=== PATIENT | female | born 1990 | race African-American/Black ===

== ENCOUNTER 2018-05-15 15:24 | Emergency (ER) | payer OTHER ==
[2018-05-15 15:32] VITALS: BP 107/53; PULSE 85; TEMP 98.4; BMI 29.7
--- NOTE | 2018-05-15 15:58 | PDOC ---
History of Present Illness - General Chief Complaint: Vaginal Sxs Stated Complaint: VAGINAL PAIN Time Seen by Provider: 05/15/18 15:33 History Source: Patient Exam Limitations: No Limitations - History of Present Illness Abdominal Pain Onset Location: reports: suprapubic (27y/o F with suprapubic abd pain with UTI sx X 3 days) Past History - Travel Close contact w/someone who was outside of country & ill: No - Past Medical History Allergies/Adverse Reactions: Allergies Allergy/AdvReac Type Severity Reaction Status Date / Time No Known Allergies Allergy Verified 05/15/18 15:28 Home Medications: Ambulatory Orders Fluconazole 150 mg PO ONCE 2 Days #2 tablet 05/15/18 Sulfamethoxazole/Trimethoprim [Bactrim Ds -] 1 tab PO BID 3 Days #6 tablet 05/15 metroNIDAZOLE 0.75% VAG. GEL [Metrogel 0.75% *Vaginal Gel* -] 1 applic VG HS 7 Days #1 tube 05/15/18 metroNIDAZOLE [Flagyl -] 500 mg PO BID 7 Days #14 tablet 05/15/18 COPD: No DVT: No - Surgical History Gastric Stapling: No Neurologic Surgery: No - Immunization History Immunization Up to Date: No - Suicide/Smoking/Psychosocial Hx Smoking History: Never smoked Have you smoked in the past 12 months: No Information on smoking cessation initiated: No Hx Alcohol Use: No Drug/Substance Use Hx: No Review of Systems - Review of Systems Able to Perform ROS?: No Is the patient limited Arabic proficient: No Constitutional: No: Chills, Fever ABD/GI: No: Abdominal Distended, Abd. Pain w/ defecation, Diarrhea, Nausea, Vomiting : Yes: Dysuria, Discharge, Pain, Urgency. No: Burning, Frequency, Flank Pain , Hematuria Musculoskeletal: No: Back Pain *Physical Exam - Vital Signs Last Vital Signs Temp Pulse Resp BP Pulse Ox 98.4 F 85 18 107/53 L 97 05/15/18 15:29 05/15/18 15:29 05/15/18 15:29 05/15/18 15:29 05/15/18 15:29 - Physical Exam Female Pelvic Exam: positive: discharge, other (erythema in vagina wall with frosty white discharge). negative: CMT, adnexal tenderness Gastrointestinal/Abdominal: positive: Tenderness (suprapubic region) Musculoskeletal: positive: Normal Inspection. negative: CVA Tenderness Neurologic: positive: scraper meat II-XII NML intact, Fully Oriented, Alert Moderate Sedation - Procedure Monitoring Vital Signs: Procedure Monitoring Vital Signs Temperature 98.4 F 05/15/18 15:29 Pulse Rate 85 05/15/18 15:29 Respiratory Rate 18 05/15/18 15:29 Blood Pressure 107/53 L 05/15/18 15:29 O2 Sat by Pulse Oximetry (%) 97 05/15/18 15:29 Medical Decision Making - Medical Decision Making 05/15/18 15:56 27 years old female presents with lower abdominal discomfort urinary urgency frequency and dysuria 3 days. Patient denies any fever chills she has no sexually she has no SDI concerns. Patient also complaining of malodorous vaginal discharge she is monogamous with 1 partner. Examination consistent with erythema in the vaginal canal. Positive creamy discharge with odor. Positive suprapubic tenderness noted. There is no CVA tenderness. UA GC chlamydia sent. 05/15/18 17:13 plan:UA wnl, will tx for sympomatic UTI with 3 days of bactrim discharge analysis on examination is consistent with BV, Rx for flagyl with ETOH precautions UCX sent *DC/Admit/Observation/Transfer Diagnosis at time of Disposition: Dysuria Vaginitis Qualifiers: Chronicity: acute Qualified Code(s): N76.0 - Acute vaginitis - Discharge Dispostion Disposition: HOME Condition at time of disposition: Stable - Prescriptions Prescriptions: Fluconazole 150 mg PO ONCE 2 Days #2 tablet metroNIDAZOLE [Flagyl -] 500 mg PO BID 7 Days #14 tablet metroNIDAZOLE 0.75% VAG. GEL [Metrogel 0.75% *Vaginal Gel* -] 1 applic VG HS 7 Days #1 tube Sulfamethoxazole/Trimethoprim [Bactrim Ds -] 1 tab PO BID 3 Days #6 tablet - Referrals Referrals: ON STAFF,NOT [Primary Care Provider] - - Patient Instructions Printed Discharge Instructions: DI for Dysuria -- Adult Additional Instructions: Please follow up with your [facility] if symptoms persist - Post Discharge Activity
[2018-05-15 16:09] LABS: HCG,QUALITATIVE URINE Negative
[2018-05-15 16:16] LABS: URINE APPEARANCE CLEAR; URINE BILIRUBIN NEGATIVE (<2.0 mg/dL); URINE COLOR YELLOW; URINE GLUCOSE (UA) NEGATIVE (NEGATIVE); URINE KETONE NEGATIVE (NEGATIVE); URINE LEUK ESTERASE TRACE (NEGATIVE); URINE NITRITE NEGATIVE (NEGATIVE); URINE PROTEIN NEGATIVE (NEGATIVE); URINE UROBILINOGEN NEGATIVE mg/dL (0.2-1.0)
[2018-05-15 16:19] LABS: EPI CELLS RARE /HPF (FEW)
== END 2018-05-15 16:45 | disposition home or self-care (01) ==
LOC: JERFT 15:24
DX: N76.0 Acute vaginitis (principal)
CPT/HCPCS: 36415; 81003; 81015; 84703; 87086; 87491; 87591; 99281-25

== ENCOUNTER 2018-09-02 08:40 | Emergency (ER) | payer OTHER ==
[2018-09-02 08:48] VITALS: BP 129/86; PULSE 80; TEMP 98.8; BMI 28.4
--- NOTE | 2018-09-02 09:01 | PDOC ---
History of Present Illness - General Chief Complaint: Ear Problem Stated Complaint: EARACHE Time Seen by Provider: 09/02/18 08:51 History Source: Patient - History of Present Illness Timing/Duration: reports: other Past History - Past Medical History Allergies/Adverse Reactions: Allergies Allergy/AdvReac Type Severity Reaction Status Date / Time No Known Allergies Allergy Verified 09/02/18 08:45 Home Medications: Ambulatory Orders Cyclobenzaprine HCl [Flexeril 10 mg] 10 mg PO ASDIR #14 tablet 09/02/18 Ibuprofen [Motrin -] 800 mg PO Q6H #30 tablet 09/02/18 Norgestimate-Ethinyl Estradiol [Ortho-Cyclen] 1 each PO DAILY 09/02/18 COPD: No DVT: No - Surgical History Gastric Stapling: No Neurologic Surgery: No - Immunization History Immunization Up to Date: No - Suicide/Smoking/Psychosocial Hx Smoking History: Never smoked Have you smoked in the past 12 months: No Hx Alcohol Use: No Drug/Substance Use Hx: No Review of Systems - Review of Systems Constitutional: No: Chills, Fever HEENTM: Yes: Ear Pain. No: Tinnitus, Throat Pain Neurological: No: Headache, Dizziness *Physical Exam - Vital Signs Last Vital Signs Temp Pulse Resp BP Pulse Ox 98.8 F 80 17 129/86 98 09/02/18 08:45 09/02/18 08:45 09/02/18 08:45 09/02/18 08:45 09/02/18 08:45 - Physical Exam General Appearance: Yes: Appropriately Dressed. No: Apparent Distress HEENT: positive: EOMI, Normal ENT Inspection, Normal Voice, TMs Normal, Pharynx Normal, Other (+ttp over R TMJ joint, worse when opening/closing mouth, dentition intact w/ no e/o infection). negative: Scleral Icterus (R), Scleral Icterus (L) Neck: positive: Supple. negative: Lymphadenopathy (R), Lymphadenopathy (L) Respiratory/Chest: negative: Respiratory Distress Integumentary: positive: Dry, Warm Neurologic: positive: Fully Oriented, Alert, Normal Mood/Affect Medical Decision Making - Medical Decision Making 09/02/18 09:01 27 yo F, denies any past medical history, here with severe right-sided facial pain 3 days. Pain sharp, radiates to ear, constant and worse w/ palpation of site and when opening/closing mouth. Denies any injury or other obvious inciting factors. Seen by her dentist and told that source was not dental. No toothache, otorrhea, tinnitus, sore throat, fever, chills or sensory changes. No history of similar symptoms. Took 600mg motrin this am w/ no sig relief See exam Likely TMJ syndrome -dc w/ pain control and ENT referral *DC/Admit/Observation/Transfer Diagnosis at time of Disposition: Facial pain - Discharge Dispostion Disposition: HOME Condition at time of disposition: Good - Prescriptions Prescriptions: Cyclobenzaprine HCl [Flexeril 10 mg] 10 mg PO ASDIR #14 tablet Ibuprofen [Motrin -] 800 mg PO Q6H #30 tablet - Referrals Referrals: Peter Isaac MD [Staff Physician] - - Patient Instructions Printed Discharge Instructions: Temporomandibular Disorder Additional Instructions: Based on ear exam, you may have a condition called, TMJ disorder TMJ disorders are problems with the jaw joint and the muscles around it. This can cause facial pain radiating to the ear and worsening pain when you open and close her mouth The source of this disorder can be caused by many problems including arthritis, jaw clenching teeth grinding stress and other things that strain the joint joint and the muscles around it. Please take Motrin and Flexeril as prescribed and follow up with ENT in 1 week for further evaluation - Post Discharge Activity Forms/Work/School Notes: Back to Work
[2018-09-02] MEDS ORDERED: ACETAMINOPHEN 325 MG TABLET (FP) ONE (09:02)
== END 2018-09-02 09:20 | disposition home or self-care (01) ==
LOC: JERFT 08:40
DX: M26.621 Arthralgia of right temporomandibular joint (principal)
CPT/HCPCS: 99282-25

== ENCOUNTER 2018-12-05 11:19 | Emergency (ER) | payer OTHER ==
[2018-12-05 11:23] VITALS: BP 121/71; PULSE 77; TEMP 98; BMI 28.7
[2018-12-05 12:20] LABS: EPI CELLS 1.7 /HPF (0-5/HPF); HYALINE CASTS 1 /lpf (0-8); URINE APPEARANCE CLEAR; URINE BACTERIA 34.2 /hpf (NEGATIVE); URINE BILIRUBIN NEGATIVE (NEGATIVE); URINE COLOR YELLOW; URINE GLUCOSE (UA) NEGATIVE (NEGATIVE); URINE KETONE NEGATIVE (NEGATIVE); URINE LEUK ESTERASE NEGATIVE (NEGATIVE); URINE NITRITE NEGATIVE (NEGATIVE); URINE PROTEIN NEGATIVE (NEGATIVE); URINE RBC 1 /hpf (0-4); URINE UROBILINOGEN 0.2 mg/dL (0.2-1.0); URINE WBC 1 /hpf (0-5)
--- NOTE | 2018-12-05 12:53 | PDOC ---
History of Present Illness - General Chief Complaint: Back Pain Stated Complaint: LOWER BACK PAIN/ RASH Time Seen by Provider: 12/05/18 11:52 - History of Present Illness Initial Comments: 12/05/18 12:52 29-year-old female female with dysuria and back pain times one week no systemic symptoms. Past History - Past Medical History Allergies/Adverse Reactions: Allergies Allergy/AdvReac Type Severity Reaction Status Date / Time No Known Allergies Allergy Verified 12/05/18 11:23 Home Medications: Ambulatory Orders Cyclobenzaprine HCl [Flexeril 10 mg] 10 mg PO ASDIR #14 tablet 09/02/18 Ibuprofen [Motrin -] 800 mg PO Q6H #30 tablet 09/02/18 Norgestimate-Ethinyl Estradiol [Ortho-Cyclen] 1 each PO DAILY 09/02/18 Nitrofurantoin Monohyd/M-Cryst [Macrobid -] 100 mg PO BID #14 capsule 12/05/18 COPD: No DVT: No - Surgical History Gastric Stapling: No Neurologic Surgery: No - Immunization History Immunization Up to Date: No - Suicide/Smoking/Psychosocial Hx Smoking History: Never smoked Have you smoked in the past 12 months: No Information on smoking cessation initiated: No Hx Alcohol Use: No Drug/Substance Use Hx: No Review of Systems - Review of Systems Constitutional: No: Fever : Yes: Dysuria Musculoskeletal: Yes: Back Pain *Physical Exam - Vital Signs Last Vital Signs Temp Pulse Resp BP Pulse Ox 98.0 F 77 16 121/71 99 12/05/18 11:21 12/05/18 11:21 12/05/18 11:21 12/05/18 11:21 12/05/18 11:21 - Physical Exam Comments: 12/05/18 12:50 HEAD: NC/AT EYES: Conjuntiva clear Ears: Canals and TM's normal NOSE: No d/c THROAT: Moist mucous membrances, oral pharanx clear, uvula midline NECK: Supple without adenopathy CARDIAC: S1 S2 LUNGS: CTA Full and Equal breath sounds ABDOMEN: Soft NT ND MS: Full ROM in all joints without edema NEUROLOGIC: No gross sensory or motor deficits, NVID SKIN: Normal color and temperature no lesions or rashes Number spine skin color and temperature are normal range of motion is full and nonpainful. No midline tenderness. No paralumbar musculature spasm and tenderness. 5 out of 5 strength bilateral lower extremities without gross sensorimotor deficits. Neurovascular intact. Thighs and calves are soft and nontender. ED Treatment Course - ADDITIONAL ORDERS Additional order review: Laboratory Results 12/05/18 12/05/18 12:03 12:03 Urine Color Yellow Urine Appearance Clear Urine pH 6.0 Ur Specific [place] 1.018 Urine Protein Negative Urine Glucose (UA) Negative Urine Ketones Negative Urine Blood Trace Urine Nitrite Negative Urine Bilirubin Negative Urine Urobilinogen 0.2 Ur Leukocyte Esterase Negative Urine WBC (Auto) 1 Urine RBC (Auto) 1 Urine Casts (Auto) 1 U Epithel Cells (Auto) 1.7 Urine Bacteria (Auto) 34.2 Urine HCG, Qual Negative Medical Decision Making - Medical Decision Making 12/05/18 12:50 29-year-old female with lower back pain and dysuria for one week. No systemic symptoms urine questionable for urinary tract infection I will treat accordingly. *DC/Admit/Observation/Transfer Diagnosis at time of Disposition: UTI (urinary tract infection) - Discharge Dispostion Disposition: HOME Condition at time of disposition: Stable Decision to Admit order: No - Prescriptions Prescriptions: Nitrofurantoin Monohyd/M-Cryst [Macrobid -] 100 mg PO BID #14 capsule - Referrals Referrals: Quang Alarcon MD [Staff Physician] - - Patient Instructions Printed Discharge Instructions: Urinary Tract Infection, DI for Urinary Tract Infection (UTI) Additional Instructions: Your urine showed a possible urinary tract infection. Return to the emergency room for worsening symptoms. Follow-up with internal medicine without fail in the next 1-2 days. Please take the antibiotics and finish the entire bottle as directed. - Post Discharge Activity
== END 2018-12-05 12:55 | disposition home or self-care (01) ==
LOC: JERFT 11:19
DX: N39.0 Urinary tract infection, site not specified (principal)
CPT/HCPCS: 81003; 84703; 87086; 99282-25